=== PATIENT | male | born 1955 | race Caucasian/White ===

== ENCOUNTER 2018-07-15 15:22 | Emergency (ER) | payer OTHER ==
[~2018-07-15] VITALS: Ht 177.8 cm; Wt 78.5 kg
--- NOTE | 2018-07-15 16:00 | NUR ---
patient presented to the ER c/o r ankle pain twisted his ankle last night. On room air, breathing evenly and unlabored. kept comfortable, will continue to monitor accordingly.
[2018-07-15] MEDS ORDERED: PERMETHRIN 5% CRM 60 GM TUBE TP ONE ×2 (17:00→22:09)
--- NOTE | 2018-07-15 19:01 | NUR ---
pt given meal tray.
[2018-07-15] MEDS ORDERED: hydrOXYzine 10 MG TABLET PO ONE (22:00)
[2018-07-15] MEDS ORDERED: hydrOXYzine HCL INJ 50 MG/ML VIAL IM ONE (22:00)
[2018-07-15] MEDS ORDERED: hydrOXYzine 10 MG TABLET ONE (22:21)
--- NOTE | 2018-07-15 23:10 | NUR ---
VITAL SIGNS UPDATED. Patient is resting comfortably in bed with eyes closed. Easily aroused. VSS
--- NOTE | 2018-07-16 02:56 | NUR ---
Patient is resting comfortably in bed with eyes closed. Easily aroused. VSS
--- NOTE | 2018-07-16 05:12 | NUR ---
PT PROVIDED WITH NEW CLOTHES, FOOD AND DRINK. VITAL SIGNS STABLE.
[2018-07-16] MEDS ORDERED: diphenhydrAMINE HCL 50 MG CAPSULE ONE (05:21)
[2018-07-16] MEDS ORDERED: diphenhydrAMINE HCL 25 MG CAPSULE PO ONE (05:30)
[2018-07-16] MEDS ORDERED: MAG HYDROX/AL HYDROX/SIMETH 30 ML UDC ONE (06:08)
--- NOTE | 2018-07-16 08:21 | NUR ---
BREAKFAST TRAY PROVIDED, WAITING FOR SARAH MILLER FOR EVAL.
--- NOTE | 2018-07-16 09:40 | NUR ---
PT WAS SEEN BY SARAH PROCESS CONTROL MANAGER. WAS PROVIDED W/ HOMELESS AND AIDS RESOURCES. PROVIDED W/ FOOD AND TAP CARD. HOMELESS WAIVER SIGNED.
--- NOTE | 2018-07-16 09:47 | NUR ---
PAUL recevied a call from ED requested for PAUL to see the pt. for homelessness. PAUL met with pt. bedside with ANGELO Quintero. Pt. is alert and oriented x 4. Pt's hair appereared disheveled. Pt. states he is homleess and has been for the past 7 months. Pt. 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 PAUL offered pt. assisted placement, however pt. declined stating, " I don't want to go to [facility]. Pt. is non-compliant with his HIV medications. PAUL encouraged pt. to go to his HIV clinic and get his medications. PAUL gave pt. listo of HIV clinics in [facility]. PAUL also gave pt. list of assisted resources which include [facility] Homeless resources, food chandler, showers, clinics etc. Pt. was provided with breakfast. PAUL encouraged pt. to reach out to his show card letterer regarding permanent housing. Homeless Patient Waiver form was signed by the pt. and placed in pt's chart. A copy of homeless resources that were given to the pt. were also placed in pt's chart. Pt. was given a TAP card as well.
--- NOTE | 2018-07-16 10:06 | NUR ---
PT WAS ALLOWED SHOWER. PT WAS GIVEN RESOURCES, AND TAP CARD. D/C ,IN STABLE CONDITION.
[2018-07-16 10:13] VITALS: BP 146/92
== END 2018-07-16 10:14 | disposition home or self-care (01) ==
LOC: ER 15:26
DX: B86 Scabies (principal); M25.571 Pain in right ankle and joints of right foot; L29.9 Pruritus, unspecified; F19.10 Other psychoactive substance abuse, uncomplicated; Z59.0 Homelessness; X50.1XXA Overexertion from prolonged static or awkward postures, initial encounter; Y93.89 Activity, other specified; Y92.89 Other specified places as the place of occurrence of the external cause; Y99.8 Other external cause status
CPT/HCPCS: 73610; 99283; Q0163; Q0177; J3410

== ENCOUNTER 2018-12-01 07:13 | Emergency (ER) | payer OTHER ==
[~2018-12-01] VITALS: Ht 177.8 cm; Wt 77.1 kg
--- NOTE | 2018-12-01 07:25 | NUR ---
patient came in to the ER c/o nausea and vomiting started this morning, admits on smoking weed. On room air, ambulatory with steady gait. Kept comfortable, will continue to monitor accordingly.
[2018-12-01] MEDS ORDERED: ONDANSETRON 4 MG TAB.RAPDIS SL ONE (07:30)
[2018-12-01] MEDS ORDERED: ACETAMINOPHEN ES 500 MG TABLET PO ONE (07:30)
[2018-12-01] MEDS ORDERED: ACETAMINOPHEN ES 500 MG TABLET ONE (07:36)
[2018-12-01] MEDS ORDERED: ONDANSETRON 4 MG TAB.RAPDIS ONE (07:36)
[2018-12-01 07:54] LABS: CALCIUM, SERUM 8.3 mg/dL (8.5-10.1); CREATININE 0.9 mg/dL (0.6-1.3); POTASSIUM 4.5 mmol/L (3.5-5.1)
[2018-12-01 08:00] LABS: ALBUMIN 3.6 g/dL (3.4-5.0); BILIRUBIN,DIRECT 0.1 mg/dL (0.0-0.2); BILIRUBIN,TOTAL 0.4 mg/dL (0.2-1.0); TOTAL PROTEIN, SERUM 6.9 g/dL (6.4-8.2)
[2018-12-01 08:53] VITALS: BP 145/88
--- NOTE | 2018-12-01 08:53 | NUR ---
Patient discharged to home in stable condition. Written and verbal after care instructions given. Patient verbalizes understanding of instruction.
== END 2018-12-01 08:53 | disposition home or self-care (01) ==
LOC: ER 07:22
DX: R11.10 Vomiting, unspecified (principal); R42 Dizziness and giddiness; Z98.890 Other specified postprocedural states
CPT/HCPCS: 36415; 80048; 80076; 99283; Q0162